=== PATIENT | female | born 1955 | race Caucasian/White ===

== ENCOUNTER 2019-06-28 08:10 | Emergency (ER) | payer MEDICARE, OTHER ==
[2019-06-28 08:18] VITALS: BP 163/93
[2019-06-28] MEDS ORDERED: TETANUS/DIPHTHERIA/PERTUSSIS 0.5 ML SYRINGE IM ONE (08:23)
--- NOTE | 2019-06-28 08:25 | ED Physician Documentation ---
History of Present Illness - Stated complaint Stated Complaint: FORIEGN OBJECT IN FOOT - Chief complaint Chief Complaint: General - Additonal information Additional information: This is a 64-year-old female presents with concern for a piece of a sewing needle stuck in her right foot. She states the needle was in a bath rug and she stepped on it without seeing it, and she felt like it might of broken off in her foot. She brings in other pieces of the needle and it seems to be missing the knitting machine fixer head where that thread is started into, she thinks this is still in the foot. The puncture is in the right lateral side of her right foot. She has mild pain in the area. Her last tetanus was in 2006 she denies fever or purulent drainage. Review of Systems Constitutional: denies: Fever Skin: reports: Other (punture wound right foot) Musculoskeletal: reports: Extremity pain PD PAST MEDICAL HISTORY - Past Medical History Cardiovascular: Hypertension - Present Medications Home Medications: Ambulatory Orders Medication Instructions Recorded Confirmed Cephalexin [Keflex] 500 mg PO Q6H #28 capsule 06/28/19 - Allergies Allergies/Adverse Reactions: Allergies Allergy/AdvReac Type Severity Reaction Status Date / Time No Known Drug Allergies Allergy Verified 06/28/19 08:18 - Social History Does the pt smoke?: No Smoking Status: Never smoker PD ED PE NORMAL - Vitals Vital signs reviewed: Yes - General General: Alert and oriented X 3, No acute distress - Cardiac Cardiac: Other (Well perfused extremities) - Respiratory Respiratory: No respiratory distress - Abdomen Abdomen: Non distended - Extremities Extremities: Other (Over the right lateral midfoot there is a puncture wound with no visible foreign body. There is tenderness in the region. Patient has brisk capillary refill over her toes, sensation to light touch intact.) - Neuro Neuro: Alert and oriented X 3 - Psych Psych: Normal mood, Normal affect Results - Vitals Vitals: Vital Signs - 24 hr 06/28/19 08:17 Temperature 97.7 C H Heart Rate 97 Respiratory 18 Rate Blood Pressure 163/93 H O2 Saturation 100 Oxygen O2 Source Room air PD MEDICAL DECISION MAKING - ED course Complexity details: considered differential (Foreign body, puncture wound, tetanus risk, cellulitis) ED course: Patient presents with feeling of a sewing needle breaking off in her foot after stepping on it accidentally. There is a very small puncture wound in the lateral right side of her foot, there are no signs of infection or cellulitis at this time. There is no palpable foreign body superficial in the skin. Using bedside ultrasound I do see a small metallic foreign body which is at a depth of around 1 cm. Given how fine the needle is it will be very difficult to remove in the emergency department. After discussion with the patient we decided to do a superficial expiration to see if the object would be removed easily. I cleaned the area, injected a small wheal of lidocaine, and using an 11 blade I superficially open their region overlying the foreign body where the puncture wound was seen. There is no foreign body visible, and I have a suspicion that further attempts expiration will cause more damage the soft tissues without likely being successful in removing the needle. The wound was hemostatic and a bandage was applied. I discussed with the patient that these foreign bodies will sometimes work their way out to the surface. Other times they will need to be removed surgically. A brake repairer railroad or orthopedist will likely be the most effective in removing this foreign body if it continues to give her issues. We updated her tetanus, and I prescribed a course of Keflex and to start if she has any signs of infection. I recommended she follow-up with her primary care brake rep[employer], and that she return to emerge department with any signs of infection worsening pain or other concerning symptoms. Patient agreed and was discharged home Departure - Departure Disposition: 01 Home, Self Care Clinical Impression: Foreign body (FB) in soft tissue Condition: Good Instructions: ED Foreign Body Soft Tissue Follow-Up: Your,PCP [Other] (For follow up as needed on symptoms and consideration of removal of foreign body) Prescriptions: Cephalexin [Keflex] 500 mg PO Q6H #28 capsule Comments: You were seen today because a piece of a sewing needle broke in your foot. On ultrasound it does appear that there is a piece of metal, but it is at a depth that is not easily accessible without causing more damage to your foot tissues. Please follow-up with your primary care provider, and start the antibiotic if you develop any signs of infection. If you have greatly increased redness, pain, or drainage of pus from the area return to the emergency department.
== END 2019-06-28 09:12 | disposition home or self-care (01) ==
LOC: ED 08:10
DX: S91.341A Puncture wound with foreign body, right foot, initial encounter (principal); W45.8XXA Other foreign body or object entering through skin, initial encounter; Z23 Encounter for immunization; I10 Essential (primary) hypertension
CPT/HCPCS: 90471; 99284